=== PATIENT | female | born 1995 | race Two or more races ===

== ENCOUNTER 2021-02-23 20:55 | Emergency (ER) | payer MEDICAID, OTHER ==
[~2021-02-23] VITALS: Ht 167.6 cm; Wt 130.0 kg
[~2021-02-23 20:55] MED LIST: CYCL10TA2 PO; HYDR-3164 PO; METH-37 PO; PRED20TA PO
[2021-02-24 00:51] VITALS: BP 142/98
--- NOTE | 2021-02-24 01:16 | ED.ADGEN ---
Past Medical History Past Medical History: Arthritis, Other Additional Past Medical Histor: SPINAL STENOSIS, DDD Past Surgical History: Other Additional Past Surgical Histo: WISDOM TEETH Smoking Status: Current Some Day Smoker Alcohol Use: Rarely Drug Use: None General Adult EDM: Chief Complaint: MECHANICAL FALL HPI: HPI: Patient is a 25 year old female coming in for right leg injury. Patient states she was carrying some food to the curb and fell onto her right leg twisting her right ankle. Patient states that she was trying to hurry to get off of her foot due to pain and she scraped her left knee on the concrete. No other injuries. Tetanus up-to-date. Review of Systems: Review of Systems: All other systems within normal limits except for as noted in the HPI Current Medications: Current Medications Medications (Trade) Dose Ordered Sig/Kacey Start Time Stop Time Status Last Admin Dose Admin Acetaminophen/ Hydrocodone Bitart (Lortab 5/325) 1 tab 1X ONCE 02/24/21 01:30 02/24/21 01:31 DC 02/24/21 01:44 1 TAB Neomycin/ Polymyxin/ Bacitracin (Triple Antibiotic Ointment) 1 pkt 1X ONCE 02/24/21 01:30 02/24/21 01:31 DC 02/24/21 01:43 1 PKT Allergies: Allergies: Allergies Coded Allergies Type Severity Reaction Last Updated Verified shellfish derived Allergy Severe 12/23/13 No Physical Exam: PE: Constitutional: Well developed, well nourished, no acute distress, non-toxic appearance. [] HENT: Normocephalic, atraumatic, bilateral external ears normal, nose normal. [] Eyes: PERRLA, conjunctiva normal, no discharge. [] Neck: No rigidity, supple, no stridor. [] Cardiovascular: Regular rate and rhythm, brisk cap refill [] Lungs & Thorax: Non labored symmetric respirations, no tachypnea or respiratory distress [] Abdomen: Soft, nondistended. Skin: Warm, dry, no erythema, no rash. [] Back: Unremarkable Extremities: No deformities, range of motion grossly intact, no lower extremity edema. Swelling over right lateral malleolus, tenderness on squeezing tib-fib, no tenderness over fifth metatarsal [] Neurologic: Alert and oriented X 3, no focal deficits noted. [] Psychologic: Affect normal, judgement normal, mood normal. [] Current Patient Data: Vital Signs: Vital Signs Date Time Temp Pulse Resp B/P (MAP) Pulse Ox O2 Delivery O2 Flow Rate FiO2 02/24/21 01:44 18 97 Room Air 02/24/21 00:51 98.7 86 142/98 (102) 98.7 EKG: EKG: [] Heart Score: C/O Chest Pain: No Risk Factors: Risk Factors: DM, Current or recent (<one month) smoker, HTN, HLP, family history of CAD, obesity. Risk Scores: Score 0 - 3: 2.5% MACE over next 6 weeks - Discharge Home Score 4 - 6: 20.3% MACE over next 6 weeks - Admit for Clinical Observation Score 7 - 10: 72.7% MACE over next 6 weeks - Early Invasive Strategies Radiology/Procedures: Radiology/Procedures: EP interpretation: No fractures dislocations on x-rays, soft tissue swelling over lateral malleolus Course & Med Decision Making: Course & Med Decision Making X-ray read not resulted, likely due to high volume and multiple facilities in the area. Discussed conservative treatment with a splint with patient and will watch for readings and call patient if anything comes back positive. Treatment plan discussed with patient including orthopedic follow-up. Mickey Disclaimer: Mickey Disclaimer: This electronic medical record was generated, in whole or in part, using a voice recognition dictation system. Departure Departure Impression: Primary Impression: Right ankle injury Disposition: HOME / SELF CARE / HOMELESS Condition: STABLE Referrals: IMMANUEL LAZAR Jr. DO Patient Instructions: Crutch Use, RICE - Routine Care for Injuries Scripts Hydrocodone Bit/Acetaminophen (HYDROCODONE-APAP 5-325 ) 1 Tab Tablet 1 TAB PO PRN Q6HRS PRN for PAIN for 5 Days, #20 TAB 0 Refills Prov: JEANNIE LINDSEY MD 02/24/21 JEANNIE LINDSEY MD Feb 24, 2021 01:16
[2021-02-24] MEDS ORDERED: NEOMY/BACITR/POLYMYXIN OINT PACKET. TP ONE (01:30)
[2021-02-24] MEDS ORDERED: HYDROcodone/APAP 5/325MG 1 TAB TABLET PO ONE (01:30)
[2021-02-24] MEDS ORDERED: HYDR-2761 PO (03:25)
--- NOTE | 2021-02-24 03:39 | RAD ---
Right tibia-fibula AP lateral x-rays HISTORY: Fall and right leg injury and pain. FINDINGS: No fracture or dislocation of the tibia and fibula. No bone lesion. Soft tissues are unrema rkable. IMPRESSION: Normal exam. Right ankle x-rays 3 views HISTORY: Fall, inversion injury, pain. FINDINGS: There is lateral ankle soft tissue swelling and edema. No fracture. No dislocation. No talu s osteochondral lesion. Small spur the plantar calcaneus. IMPRESSION: No acute osseous injury. Mild lateral ankle soft tissue edema and swelling. Electronically signed by: Omar Hayes MD (02/24/2021 3:36 AM) [facility]
--- NOTE | 2021-02-24 03:39 | RAD ---
Right tibia-fibula AP lateral x-rays HISTORY: Fall and right leg injury and pain. FINDINGS: No fracture or dislocation of the tibia and fibula. No bone lesion. Soft tissues are unrema rkable. IMPRESSION: Normal exam. Right ankle x-rays 3 views HISTORY: Fall, inversion injury, pain. FINDINGS: There is lateral ankle soft tissue swelling and edema. No fracture. No dislocation. No talu s osteochondral lesion. Small spur the plantar calcaneus. IMPRESSION: No acute osseous injury. Mild lateral ankle soft tissue edema and swelling. Electronically signed by: Omar Hayes MD (02/24/2021 3:36 AM) [facility]
== END 2021-02-24 03:30 | disposition home or self-care (01) ==
LOC: ER 20:55
DX: S99.911A Unspecified injury of right ankle, initial encounter (principal); F17.200 Nicotine dependence, unspecified, uncomplicated; W10.1XXA Fall (on)(from) sidewalk curb, initial encounter; Y93.89 Activity, other specified; Y92.89 Other specified places as the place of occurrence of the external cause; Y99.8 Other external cause status
CPT/HCPCS: 29515; 73590; 73610; 99284